=== PATIENT | female | born 1980 | race African-American/Black ===

== ENCOUNTER → 2020-04-30 | Outpatient (CLI) | payer OTHER ==
[~2020-04-30] MED LIST: AUGMENTIN 875-1 EACH PO; BENADRYL25 MG; ERYTHROMYCIN E3.5 G3 OPHTHALMIC; HYDROCODONE-AP1 EAC6 PO; NORCO 5-325 TA1 EACH PO; PERCOCET 5-3251 EACH PO; PREDNISONE 20 M20 MG PO
== END ==
LOC: ULTRA 14:43
PROVIDERS: ATTEND Nurse Practitioner
DX: I82.402 Acute embolism and thrombosis of unspecified deep veins of left lower extremity (principal)

== ENCOUNTER 2021-08-10 14:03 | Inpatient (IN) | payer OTHER ==
[~2021-08-10] VITALS: Ht 167.6 cm; Wt 120.2 kg
--- NOTE | ~2021-08-10 | EMS ---
[place] [id number] EMS Patient Care Report Name: DAYNA COHEN Room #: 363-P ADM IN M.R.#: [id number] Admission: 08/10/21 Attend Phys: Manuel Hood MD Discharge: Date of : 80 Report #: [id number] THIS REPORT FOR: //name// Report Transmitted: 08/22/2021 13:58 EMS Care Summary [place], [place]/[facility] Incident [id number] @ 08/10/2021 13:43 Incident Location [address] [place] [address] Patient DAYNA COHEN Female, 41 Years 1980 Patient Address Patient History None Reported, Patient Allergies No known allergies, Patient Medications None Reported, Chief Complaint COUGH, CONGESTION, FEVER, CHILLS, AND WEAKNESS Disposition Transported No Lights/[place] Dispatch Reason Breathing Problem Transported To [facility] Narrative UPON ARRIVAL WE FOUND OUR 41 YEAR OLD FEMALE PATIENT LAYING IN AN EXAM ROOM AT [facility] COMPLAINING OF A COUGH, CONGESTION, FEVER, CHILLS, WEAKNESS, AND MALAISE X 5 DAYS. [facility] STAFF STATES THE PATIENT HAD A ROOM AIR SAO2 READING OF 72% AND HER COVID-19 TEST IS PENDING. THE PATIENT STATES SHE IS NOT VACCINATED AGAINST COVID-19 AND SHE HAS HAD EXPOSURE TO HER ILL FATHER. THE PATIENT REQUESTS TRANSPORT TO [facility] [place] [place] [address] EMS Patient Care Report Name: DAYNA COHEN Room #: 363-P [facility] IN .R.#: [id number] Admission: 08/10/21 Attend Phys: Manuel Hood MD Discharge: Date of : 80 Report #: [id number] Initial Vitals @13:52P: 108,R: 20,BP: 134/81,Pain: 0/10,GCS: 15,Temp: 102.1F,SpO2: 100,Revised Trauma: 12,SD Suspected: false @13:59P: 112,R: 20,BP: 138/72,Pain: 0/10,GCS: 15,SpO2: 98,Revised Trauma: 12,SD Suspected: false Assessments @13:49MENTAL:Time Oriented,Event Oriented,Place Oriented,Person Oriented,SKIN:Hot,HEENT:Eyes: Right Pupil: 4-mm,Eyes: Left Pupil: 4-mm,Head/Face: No Abnormalities,Neck/Airway: No Abnormalities,LUNG SOUNDS:General: No Abnormalities,ABDOMEN:General: No Abnormalities,PELVIS//GI:No Abnormalities,EXTREMITIES:Left Arm: No Abnormalities,Right Arm: No Abnormalities,Left Leg: No Abnormalities,Right Leg: No Abnormalities,PULSE:Radial: 2+ Normal,NEURO:No Abnormalities, Impression Cough Procedures @13:49 ALS Assessment Response: UnchangedSucceeded @13:52 3-Lead ECG Response: UnchangedSucceeded @13:50 Oxygen FlowRate: 6 Device: Nasal Cannula (NC) Response: UnchangedSucceeded Timeline 13:42,Call Received 13:42,Dispatch Notified 13:43,Dispatched 13:45,En Route 13:48,On Scene 13:49,At Patient 13:49,ALS Assessment,Response: UnchangedSucceeded, 13:50,Oxygen FlowRate: 6 Device: Nasal Cannula (NC) Response: UnchangedSucceeded, 13:52,3-Lead ECG,Response: UnchangedSucceeded, 13:52,BP: 134/81 M,PULSE: 108,RR: 20 R,SPO2: 100 Ox,ETCO2: ,BG: ,PAIN: 0,GCS: 15, 13:52,Depart Scene 13:59,At Destination 13:59,BP: 138/72 M,PULSE: 112,RR: 20 R,SPO2: 98 Ox,ETCO2: ,BG: ,PAIN: 0,GCS: 15, 14:18,Call Closed Disclaimer [address] [address] EMS Patient Care Report Name: DAYNA COHEN Room #: 363-P ADM IN M.Beto.#: [id number] Admission: 08/10/21 Attend Phys: Manuel Hood MD Discharge: Date of : 80 Report #: [id number] v1.1 Copyright 2020 [employer] This EMS Care Summary contains data elements from the applicable legal record (which may be displayed differently). It is designed to provide pertinent information for the following purposes: continuity of care, clinical quality, and state data reporting. The complete legal record is available to ED staff and administrators of the receiving hospital in [facility]'s Patient Tracker. All data is provided "as is."
[2021-08-10 14:04] VITALS: BP 130/80
[2021-08-10 14:45] LABS: ABSOLUTE NEUTROPHILS 5.2 thou/uL (1.4-8.2); BASOPHILS 0.2 % (0.0-2.0); HEMATOCRIT 32.9 % (37.0-47.0); HEMOGLOBIN 10.8 gm/dL (12.0-15.0); LYMPHOCYTES 11.7 % (24.0-44.0); MCH 27.4 pg (26.0-34.0); MCHC 32.9 g/dL (28.0-37.0); MCV 83.1 fL (80.0-100.0); MONOCYTES 5.2 % (1.0-8.0); PLATELET COUNT 227 thou/uL (150-400); POLYS 82.9 % (36.0-66.0); RBC 3.96 mil/uL (4.20-5.00); WBC 6.3 thou/uL (4.0-11.0)
[2021-08-10 15:12] LABS: HCO3 24.3 mmol/L (22.0-26.0); PCO2 30.4 mmHg (35.0-45.0); pH 7.521 (7.360-7.450); sO2 95.1 % (92.0-98.0)
[2021-08-10 15:40] LABS: APTT 26.3 Seconds (24.5-32.8); D-DIMER 9.89 ug/mLFEU (0.19-0.50); INR 1.01
[2021-08-10 15:47] LABS: ALBUMIN 2.4 g/dL (3.4-5.0); CALCIUM 7.4 mg/dL (8.5-10.1); CREATININE 0.8 mg/dL (0.6-1.0); TOTAL BILIRUBIN 0.4 mg/dL (0.2-1.0); TOTAL PROTEIN 6.9 g/dL (6.4-8.2)
[2021-08-10 15:49] LABS: POTASSIUM 2.9 mmol/L (3.5-5.1)
[2021-08-10 17:47] LABS: ABSOLUTE RETIC COUNT 0.0358 10^6/uL; HEMATOCRIT 32.8 % (37.0-47.0); HEMOGLOBIN 10.8 gm/dL (12.0-15.0); MCH 27.4 pg (26.0-34.0); MCV 82.8 fL (80.0-100.0); OBSERVED RETIC COUNT 0.9 % (0.6-2.6); RBC 3.96 mil/uL (4.20-5.00); RDW 15.7 % (10.5-14.5); WBC 6.2 thou/uL (4.0-11.0)
[2021-08-10 18:12] LABS: FOLIC ACID 14.7 ng/mL (8.6-58.9)
[2021-08-10 18:31] LABS: % SATURATION 6 % (20-39); IRON 21 ug/dL (50-170); TIBC 368 ug/dL (250-450)
[2021-08-10 21:54] LABS: URINE BILIRUBIN NEGATIVE (Negative); URINE BLOOD 3+ (Negative); URINE CLARITY CLEAR; URINE COLOR YELLOW; URINE GLUCOSE-RANDOM* NEGATIVE (Negative); URINE KETONES 1+ (Negative); URINE LEUKOCYTES-REFLEX NEGATIVE (Negative); URINE NITRITE-REFLEX NEGATIVE (Negative); URINE PROTEIN (DIPSTICK) NEGATIVE (Negative); URINE SPECIFIC GRAVITY <= 1.005 (1.005-1.035); URINE UROBILINOGEN 0.2 E.U./dl (0.2-1.0)
[2021-08-10 22:02] LABS: BACTERIA-REFLEX None Seen /HPF (None Seen); CASTS None Seen /LPF (None Seen); CRYSTALS None Seen /LPF (None Seen); SQUAMOUS 0-3 Few /LPF (0-3); URINE RBC >20 Many /HPF (NONE SEEN)
[2021-08-10 22:03] LABS: URINE WBC-REFLEX None Seen /HPF (0-5)
[2021-08-11 05:27] LABS: HEMOGLOBIN 10.1 gm/dL (12.0-15.0); MCH 27.5 pg (26.0-34.0); MCHC 32.6 g/dL (28.0-37.0); MCV 84.3 fL (80.0-100.0); RBC 3.68 mil/uL (4.20-5.00); WBC 4.1 thou/uL (4.0-11.0)
[2021-08-11 05:36] LABS: ALBUMIN 2.4 g/dL (3.4-5.0); ANION GAP 13 mmol/L (7-16); BUN 7 mg/dL (7-18); CALCIUM 7.5 mg/dL (8.5-10.1); CHLORIDE 106 mmol/L (98-107); CO2 24 mmol/L (21-32); CREATININE 0.7 mg/dL (0.6-1.0); DIRECT BILIRUBIN < 0.1 mg/dL (<0.1-0.2); GLUCOSE 128 mg/dL (74-106); MAGNESIUM 2.5 mg/dL (1.8-2.4); PHOSPHORUS 2.7 mg/dL (2.6-4.7); POTASSIUM 3.4 mmol/L (3.5-5.1); SGOT 85 U/L (15-37); SGPT 42 U/L (14-59); SODIUM 143 mmol/L (136-145); TOTAL BILIRUBIN 0.3 mg/dL (0.2-1.0); TOTAL PROTEIN 6.9 g/dL (6.4-8.2)
--- NOTE | 2021-08-11 07:19 | EKG ---
[place] [address] [facility] [place] [address] ELECTROCARDIOGRAM REPORT Name: DAYNA COHEN Room #: 170-12 ADM IN M.R.#: [id number] Admission: 08/10/21 Attend Phys: Manuel Hood MD Discharge: Date of : 80 Report #: [id number] [facility] ED Test Date: 2021-08-10 Test Time: 14:18:54 Pat Name: DAYNA COHEN Department: Room: 170 Gender: F Physiotherapist'S Assistant: ILDA : 1980 Requested By: Romulo Lund Order Number: [id number] MD: Franklyn Tipton Measurements Intervals [place] Rate: 101 P: 51 KS: 133 QRS: 23 QRSD: 91 T: -11 QT: 367 QTc: 476 Interpretive Statements Sinus tachycardia Probable left atrial enlargement Borderline T abnormalities, diffuse leads Borderline prolonged QT interval No previous ECG available for comparison Electronically Signed On 08-11-2021 7:19:32 WELDING EQUIPMENT REPAIRER by Franklyn Tipton [email or web address] <ELECTRONICALLY SIGNED> By: Franklyn Tipton MD, [facility] 08/11/21 0719 1418 1418 Franklyn Tipton MD, FACC /EPI
--- NOTE | 2021-08-11 20:39 | NUR ---
RT PLACED ON OPTIFLOW THEN D/T MACHINE ERROR AND NO CHANGE TO OXYGEN SATS STARTED ON BIPAP. PULSE OX NOW 100% ON BIPAP.
[2021-08-11 21:40] VITALS: BP 142/91
[2021-08-12] VITALS (18 sets, daily range): BP systolic 124–156; BP diastolic 58–97
[2021-08-12 04:16] LABS: ALBUMIN 2.4 g/dL (3.4-5.0); CALCIUM 7.6 mg/dL (8.5-10.1); CREATININE 0.8 mg/dL (0.6-1.0); DIRECT BILIRUBIN 0.1 mg/dL (<0.1-0.2); TOTAL BILIRUBIN 0.4 mg/dL (0.2-1.0); TOTAL PROTEIN 6.8 g/dL (6.4-8.2)
--- NOTE | 2021-08-12 04:34 | NUR ---
ADMISSION: PT ARRIVED FROM ER AT 2140 AND IS ALERT & ORIENTED X 4. PT IS ON 100% BIPAP AND O2 SATS 99-100%. VSS BUT PT WAS FEBRILE UPON ARRIVAL TO UNIT. ADMINISTERED TYLENOL PRN AND FEVER WAS REDUCED. PT HAS SOB WITH EXERTION AND IS UP WITH X1 ASSIST. PT IS SR/ST ON TELE MONITOR. CARE PLAN IN PLACE AND INTERVENTIONS ARE SET. WILL CONTINUE TO MONITOR.
[2021-08-12 04:43] LABS: HEMATOCRIT 32.8 % (37.0-47.0); HEMOGLOBIN 10.3 gm/dL (12.0-15.0); MCH 27.1 pg (26.0-34.0); MCHC 31.4 g/dL (28.0-37.0); MCV 86.5 fL (80.0-100.0); RBC 3.8 mil/uL (4.20-5.00); WBC 6.4 thou/uL (4.0-11.0)
--- NOTE | 2021-08-12 08:34 | HC ---
[facility] [place] [address] CONSULTATION Name: DAYNA COHEN Room #: 349-I ADM IN M.R.#: [id number] Admission: 08/10/21 Attend Phys: Manuel Hood MD Discharge: Date of : 80 Report #: [id number] THIS REPORT FOR: cc: Lizz Reina MD, Nora P. MD Barry,Leo Candelario MD ~ DATE OF SERVICE: 08/11/2021 INFECTIOUS DISEASE CONSULTATION ATTENDING PHYSICIAN: Dr. Hood. REASON FOR EVALUATION: COVID-19 infection, complicated by pneumonitis and respiratory failure. HISTORY OF PRESENT ILLNESS: Chart reviewed. The patient examined. This is a 41-year-old woman without significant medical history who noted onset of illness, progressive dyspnea over the course of last several days, was evaluated, and was confirmed to have a positive COVID test. Also found to have radiographic evidence of bilateral infiltrates and hypoxemia, pO2 of 66 on 6 liters. CTA of the chest showed no evidence of pulmonary embolus. She was initiated on broad-spectrum combination therapy with azithromycin, ceftriaxone, remdesivir, corticosteroids, vitamins. She notes she is somewhat improved subjectively, although has required additional supplemental oxygen, now at 12 liters per nasal cannula. ALLERGIES: None known. CURRENT MEDICATIONS: Include dexamethasone, azithromycin, ceftriaxone, cholecalciferol, zinc, vitamin, famotidine, ascorbic acid, albuterol, p.r.n. analgesics, antiemetics, remdesivir. PAST MEDICAL HISTORY: Otherwise, unremarkable. She is obese. SOCIAL HISTORY: Nonsmoker, no ethanol, no illicit drug use. FAMILY HISTORY: Noncontributory. REVIEW OF SYSTEMS: Otherwise, has had some fevers, chills, diminished appetite, poor p.o. intake, although was pushing fluids. PHYSICAL EXAMINATION: GENERAL: She is alert, cooperative, moderate distress secondary to respiratory difficulties. She appears to be reasonably well nourished. VITAL SIGNS: Temperature 98.2. She had a T-max overnight of 101.3, pulse 97, respirations 16, blood pressure 133/77, saturations 90-94% on 12 liters nasal [facility] [address] [place] [address] CONSULTATION Name: DAYNA COHEN Room #: 349-I ADM IN M.R.#: [id number] Admission: 08/10/21 Attend Phys: Manuel Hood MD Discharge: Date of : 80 Report #: [id number] cannula. HEENT: Normocephalic. Extraocular muscles intact. NECK: Supple. LUNGS: Bilateral few scattered coarse breath sounds overall diminished. HEART: Distant, tachycardic,_regular, I do not appreciate a murmur. ABDOMEN: Large pannus, somewhat firm, nontender. EXTREMITIES: No cyanosis. GENITOURINARY AND RECTAL: Deferred. LABORATORY DATA: Blood cultures sterile thus far. Sodium 143, potassium 3.4, chloride 106, bicarbonate is 24, anion gap of 13, BUN and creatinine 7 and 0.7, glucose of 128, AST of 85, ALT of 42, albumin of 24, total protein 6.9. Estimated GFR of 112. CBC: White count of 4.1, H and H of 10.1 and 31.0, platelets of 236. Coronavirus testing, she was negative here. TSH of 0.606. Ferritin elevated at 372. Procalcitonin less than 0.05. Lactic acid of 1.7. Chest x-ray notes multifocal pneumonia. ASSESSMENT AND PLAN: COVID-19 infection, complicated by pneumonitis and respiratory failure with significant likelihood of further deterioration. Agree with broad-spectrum antimicrobial therapy including antibacterials. We will check additional testing including sputum culture urinary antigen. Continue supportive care with oxygen therapy, anti-inflammatories. Discussed with Dr. Hood. <ELECTRONICALLY SIGNED> By: Leo Dobson MD 08/12/21 0834 1105 1138 Leo Dobson MD /nt
--- NOTE | 2021-08-12 16:28 | NUR ---
INITIAL ASSESSMENT: Received consult. SW reviewed chart and spoke with nursing and attending physician. Pt was admitted from home due to COVID pneumonia. Pt placed in Enhanced Isolation. Pt has not received a COVID Vaccination. Pt has been febrile and is requiring bipap/optiflow support. Pt is on IV meds and Remdesivir. SW placed calls to pt's room. No answer. Per chart, pt is alert/orientated x 4. Pt lives at home. Pt's PCP is listed as Dr. Lizz Reina. Pt may need therapy evals to assist with recommendations for discharge. SW is following to assist as needed with discharge planning.
--- NOTE | 2021-08-12 18:41 | NUR ---
ASSUMED PATIENT CARE AT 0700. A/O X4. ON BIPAP. TITRATED FIO2 TO 60% WITH SAT 95%. PATIENT BRETHING 42 to 45/M. DR CABRAL ORDERED TRANSFER TO ICU ROOM 238. MASSAGE LEFT TO FATHER. WILL KEEP MONITOR.
--- NOTE | 2021-08-12 20:28 | NUR ---
PATIENT ARRIVED TO ICU AT 1935. ATTACHED TO ICU MONITORS. PATIENT ON BIPAP 60% UPON ARRIVAL, SATS IN UPPER 80S. PATIENT SR ON MONITOR, NO COMPLAINTS OF PAIN BUT DOES COMPLAIN OF SOA. PIV PATENT, SL AT THIS TIME. PATIENT STABLE BUT TACHYPNIC IN 40S-50S. RT INCREASED FIO2 ON BIPAP TO 70% AND PATIENT IS NOW SATTING IN MID TO UPPER 90S BUT STILL TACHYPNIC. PATIENT'S FATHER UPDATED ON CONDITION. WILL CONTINUE TO MONITOR.
[2021-08-13] VITALS (40 sets, daily range): BP systolic 124–171; BP diastolic 81–105
[2021-08-13 05:48] LABS: HEMATOCRIT 33.2 % (37.0-47.0); HEMOGLOBIN 10.5 gm/dL (12.0-15.0); MCH 27.2 pg (26.0-34.0); MCHC 31.6 g/dL (28.0-37.0); MCV 85.9 fL (80.0-100.0); RBC 3.86 mil/uL (4.20-5.00); RDW 16.4 % (10.5-14.5); WBC 5.8 thou/uL (4.0-11.0)
[2021-08-13 06:21] LABS: ALBUMIN 2.1 g/dL (3.4-5.0); CALCIUM 7.9 mg/dL (8.5-10.1); CREATININE 0.7 mg/dL (0.6-1.0); DIRECT BILIRUBIN 0.1 mg/dL (<0.1-0.2); PHOSPHORUS 2.7 mg/dL (2.5-4.9); TOTAL BILIRUBIN 0.3 mg/dL (0.2-1.0); TOTAL PROTEIN 6.7 g/dL (6.4-8.2)
--- NOTE | 2021-08-13 07:59 | NUR ---
Pt TRANSFERRED TO ICU. WILL PLACE ON HOLD AND AWAIT NEW ORDERS TO RESUME
--- NOTE | 2021-08-13 15:45 | NUR ---
precedex on briefly. pt dozing, noting respiration is shallow with rate increased into low 40's. trialed pt without precedex with resp rate improved into upper 20's to low 30's. pt able to take deep breath, purposefully slow her breathing and make it more effective with rate in the teens. occasional purposeful cough with scant clear secretions.
[2021-08-14] VITALS (26 sets, daily range): BP systolic 143–209; BP diastolic 74–99
[2021-08-14 04:14] LABS: ALBUMIN 2.1 g/dL (3.4-5.0); ANION GAP 13 mmol/L (7-16); BUN 12 mg/dL (7-18); CALCIUM 7.9 mg/dL (8.5-10.1); CHLORIDE 107 mmol/L (98-107); CO2 24 mmol/L (21-32); CREATININE 0.7 mg/dL (0.6-1.0); DIRECT BILIRUBIN < 0.1 mg/dL (<0.1-0.2); GLUCOSE 144 mg/dL (74-106); PHOSPHORUS 4.3 mg/dL (2.5-4.9); POTASSIUM 3.4 mmol/L (3.5-5.1); SGOT 53 U/L (15-37); SGPT 27 U/L (30-65); SODIUM 144 mmol/L (136-145); TOTAL BILIRUBIN 0.3 mg/dL (0.2-1.0); TOTAL PROTEIN 6.6 g/dL (6.4-8.2)
--- NOTE | 2021-08-14 11:53 | NUR ---
TPN recommendations: start 40ml/hr standard tpn and progress to goal of 80ml/hr.
--- NOTE | 2021-08-14 16:43 | NUR ---
PT'S CARE DISCUSSED WITH CARE TEAM DURING ICU ROUNDS THIS DAY. PT ON BIPAP AT 50%. CARE TEAM INDICATED THAT PT WAS TO HAVE A CENTRAL LINE PLACED AND POSSIBLE HAVE TPN INITIATED. CM FOLLOWING.
--- NOTE | 2021-08-14 17:34 | NUR ---
VASCULAR ACCESS NOTE ORDER CONFIRMED. CONSENT OBTAINED FROM PATIENT FOR LINE PLACEMENT. 5FR TL PICC PLACED TO R BRACHIAL VEIN WITH US GUIDANCE. PATIENT TOLERATED PROCEDURE WELL. GUIDEWIRE REMOVED INTACT. ALL LUMENS FLUSH AND DRAW EASILY. 3CG VERIFICATION FOR PLACEMENT. PICC OK TO USE.
[2021-08-15] VITALS (22 sets, daily range): BP systolic 121–173; BP diastolic 64–98
[2021-08-15 07:13] LABS: CALCIUM 8.5 mg/dL (8.5-10.1); CREATININE 0.7 mg/dL (0.6-1.0); POTASSIUM 3.6 mmol/L (3.5-5.1)
--- NOTE | 2021-08-15 16:18 | NUR ---
CM REVIEWED CHART AND SPOKE WITH NURSE. PT'S CARE DISCUSSED IN ICU ROUNDS THIS DAY. STAFF REPORTS THAT PT IS A&O X4. PT IS ON BIPAP AT 60%. CARE TEAM HAD DISCUSSED PT'S ORAL INTAKE LOOKING AT TPN VS. DOBHOFF. NURSE INDICATED THAT PT'S FATHER WHO IS HER MAIN CONTACT IS IN ICU WITH JEFFREY AT ANOTHER HOSPITAL AND THAT A FRIEND HAD CALLED THIS AM. CM FOLLOWING REGARDING DC PLANNING. NO WEEKEND DC ANTICPATED.
[2021-08-16] VITALS (24 sets, daily range): BP systolic 117–174; BP diastolic 70–111
[2021-08-16 06:22] LABS: CALCIUM 8.1 mg/dL (8.5-10.1); CREATININE 0.7 mg/dL (0.6-1.0); POTASSIUM 3.6 mmol/L (3.5-5.1)
[2021-08-16 06:49] LABS: ALBUMIN 2.3 g/dL (3.4-5.0); DIRECT BILIRUBIN < 0.1 mg/dL (<0.1-0.2); MAGNESIUM 2.1 mg/dL (1.8-2.4); SGOT 71 U/L (15-37); SGPT 56 U/L (14-59); TOTAL BILIRUBIN 0.3 mg/dL (0.2-1.0); TOTAL PROTEIN 6.2 g/dL (6.4-8.2)
[2021-08-16 08:03] LABS: HCO3 24.1 mmol/L (22.0-26.0); PCO2 33.5 mmHg (35.0-45.0); pH 7.474 (7.360-7.450); sO2 96.2 % (92.0-98.0)
[2021-08-16 15:22] LABS: TRIGLYCERIDE 175 mg/dL (<150)
[2021-08-17] VITALS (32 sets, daily range): BP systolic 73–172; BP diastolic 38–94
[2021-08-17 05:41] LABS: ABSOLUTE NEUTROPHILS 4.1 thou/uL (1.4-8.2); BASOPHILS 0.5 % (0.0-2.0); EOSINOPHILS 1.9 % (0.0-3.0); HEMATOCRIT 36.6 % (37.0-47.0); HEMOGLOBIN 11.7 gm/dL (12.0-15.0); MCH 27.7 pg (26.0-34.0); MCHC 31.8 g/dL (28.0-37.0); MCV 86.8 fL (80.0-100.0); MONOCYTES 4.7 % (1.0-8.0); PLATELET COUNT 165 thou/uL (150-400); POLYS 74.9 % (36.0-66.0); RBC 4.22 mil/uL (4.20-5.00); RDW 16.2 % (10.5-14.5); WBC 5.4 thou/uL (4.0-11.0)
[2021-08-17 05:47] LABS: ALBUMIN 2.2 g/dL (3.4-5.0); CALCIUM 8.2 mg/dL (8.5-10.1); CREATININE 0.7 mg/dL (0.6-1.0); MAGNESIUM 2.1 mg/dL (1.8-2.4); PHOSPHORUS 3.1 mg/dL (2.5-4.9); POTASSIUM 4.1 mmol/L (3.5-5.1); TOTAL BILIRUBIN 0.2 mg/dL (0.2-1.0); TOTAL PROTEIN 6.3 g/dL (6.4-8.2)
--- NOTE | 2021-08-17 13:46 | NUR ---
PT HAS BEEN ON AND OFF SLEEPING THROUGHOUT THE DAY, PT WAS TRANSITIONED TO OPTIFLOW CANULA AT THE BEGINNING OF THE SHIFT AND HAS BEEN TOLERATING WELL FOR THIS SHIFT, PT WAS SEEN LESS TACHYCARDIC AND MORE PLEASANT WITH THE UPDATED THERAPY. AT TIMES PT WOULD DESAT FROM 96 TO 90% BUT WOULD REBOUND WITHOUT ASSISTANCE. PT WATCHING TV. PER , PT TO FINISH CURRENT BAG OF TPN THEN TRANSITION TO REGULAR PO DIET ONCE TPN IS COMPLETED. RN TO COMPLY AND PROVIDE NECESSARY INTEVENTIONS. WILL UPDATE IF NEEDED
--- NOTE | 2021-08-17 21:40 | NUR ---
PT BLOOD PRESSURE ALARM LOW AT 2105 85/38. PRESSURE WAS RECYCLED MULTIPLE TIMES WITH NO IMPROVMENT. PRESSURE 80'S SYSTOLIC. RN CHECKED ON PATIENT AND SHE REPORTED HER CHEST "FEELING FUNNY". STAT EKG WAS ORDERED AND REVEALED NORMAL SINUS RHYTHM, WITH BORDERLINE PROLONGED QT. BLOOD SUGAR WAS TAKEN AND IT WAS 252. PT ALERT AND ORIENTED TALKING WITH RN DURING THIS TIME. HEART AND O2 LEVELS REMAIN STABLE. INGA ROSARIO CALLED AT 2136 AND REPORTED BLOOD PRESSURE AND EKG REPORT AND BLOOD SUGAR. BROACHER REPORTED SHE WOULD TAKE A LOOK AT THE PATIENTS CHART.
--- NOTE | 2021-08-17 22:16 | NUR ---
[employer]PER[employer] ORDERED ALBUMIN AND MED STARTED AT 2158. BLOOD PRESSURE UP TO 94/54 AT THIS TIME. PT STATES CHEST IS FEELING BETTER.
[2021-08-18] VITALS (23 sets, daily range): BP systolic 94–128; BP diastolic 44–71
[2021-08-18 05:36] LABS: ABSOLUTE NEUTROPHILS 7.2 thou/uL (1.4-8.2); BASOPHILS 0.4 % (0.0-2.0); EOSINOPHILS 0.7 % (0.0-3.0); HEMATOCRIT 35.2 % (37.0-47.0); LYMPHOCYTES 15.7 % (24.0-44.0); MCH 27.1 pg (26.0-34.0); MCHC 31.3 g/dL (28.0-37.0); MCV 86.8 fL (80.0-100.0); MONOCYTES 8.9 % (1.0-8.0); PLATELET COUNT 163 thou/uL (150-400); POLYS 74.3 % (36.0-66.0); RBC 4.05 mil/uL (4.20-5.00); RDW 16.4 % (10.5-14.5); WBC 9.7 thou/uL (4.0-11.0)
[2021-08-18 05:55] LABS: BE(vivo) 2.4 mmol/L (-2 to +3); HCO3 25.9 mmol/L (22.0-26.0); PCO2 36.4 mmHg (35.0-45.0); PO2 83.4 mmHg (80.0-100.0); sO2 96.8 % (92.0-98.0)
[2021-08-18 05:58] LABS: ALBUMIN 2.8 g/dL (3.4-5.0); CALCIUM 8.7 mg/dL (8.5-10.1); CREATININE 0.7 mg/dL (0.6-1.0); POTASSIUM 3.8 mmol/L (3.5-5.1); TOTAL BILIRUBIN 0.4 mg/dL (0.2-1.0); TOTAL PROTEIN 6.2 g/dL (6.4-8.2)
--- NOTE | 2021-08-18 09:00 | EKG ---
[place] [address] [facility] [place] [address] ELECTROCARDIOGRAM REPORT Name: DAYNA COHEN Room #: 238- ADM IN M.R.#: [id number] Admission: 08/10/21 Attend Phys: Manuel Hood MD Discharge: Date of : 80 Report #: [id number] [facility] Test Date: 2021-08-17 Test Time: 21:28:50 Pat Name: DAYNA COHEN Department: Room: 238 Gender: F Diesel Electrician: MARICARMEN : 1980 Requested By: Erich Brasher Order Number: [id number] MD: Petey Koch Measurements Intervals [place] Rate: 95 P: 64 [place]: 113 QRS: 36 QRSD: 93 T: 4 QT: 397 QTc: 499 Interpretive Statements Sinus rhythm Borderline short OH interval Left ventricular hypertrophy Borderline prolonged QT interval Compared to ECG 08/10/2021 14:18:5 Sinus tachycardia no longer present Electronically Signed On 08-18-2021 9:00:31 ACCOUNT RECEIVABLE ASSOCIATE by Petey Koch [email or web address] <ELECTRONICALLY SIGNED> By: Petey Koch MD, [facility] 08/18/21899 27 27 Petey Koch MD, FAC /EPI
--- NOTE | 2021-08-18 16:28 | NUR ---
pt's care discussed during ICU rounds this day. Pt is on OptiFlow 60% at 40 L. Pt getting IV Ceftriaxone and dexamethasone. Cm following.
--- NOTE | 2021-08-18 18:27 | NUR ---
PT IS PRORESSING TOWARDS DISCHARGE AT THIS TIME AEB TOLERATING DOWNSTEP FROM BIPAP TO OPTIFLOW MACHINE AND TOLERATING DECREASE IN FIO2 TODAY, PT OVERALL APPEARANCE LOOKS BETTER AND IS BETTER ALERT/ORIENTED TODAY. CONCERN IS PT DESATS QUICKLY WITH EXERTION AND WAS FOUND TO BECOME HYPOXIC AT 86% WHILE SCOOTING SELF BACK IN BED, WILL POSSIBLY NEED PT/OT WORKUP PRIOR TO DISCHARGE. NO COMPLAINTS FROM THE PATIENT AT THIS TIME. BEGINNING TO PASS GAS. TOLERATING DIET
[2021-08-19] VITALS (13 sets, daily range): BP systolic 103–123; BP diastolic 56–71
--- NOTE | 2021-08-19 10:35 | NUR ---
41F VERBAL REPORT RECEIVED FROM REMINGTON SORENSON AT BEDSIDE. PT OF OPTIFLOE 45% 4O LT. PT ON MONITOR ACCOMPANIED BY RN.
--- NOTE | 2021-08-19 12:25 | NUR ---
PT NOTIFIED OF IMPENDING TRANSFER TO 3W, BELONGINGS GATHERED. WITH RT ASSISTANCE, SWITCH FROM OPTIFLOW TO NRB FOR TRAVEL. BEDSIDE REPORT GIVEN TO 3W RN BY YAS MACEDO. TRANSPORT MONITOR USED, TRANSITIONED TO TELEMETRY PACK ON 3W. TRANSFER COMPLETED AT 11:30AM.
--- NOTE | 2021-08-19 16:11 | NUR ---
SADIE reviewed chart and spoke with nursing and attending physician. Pt remains in Enhanced Isolation due to COVID. Pt is afebrile and on optiflow. Pt is on IV steroids and Remdesivir. Pt was transferred to 3 from ICU earlier today. PT/OT evals ordered. SADIE discussed case with 5N homemaking rehabilitation consultant. Pt may benefit from a 5N consult pending progress with therapy and medical stability. SADIE is following to assist as needed with discharge planning.
--- NOTE | 2021-08-19 16:22 | NUR ---
PT AOX3 PT CENTRAL LINE HAS ONLY ONE PORT FUNCTIONING. IV TEAM NOTIFIED. mD MARTIN STATED IT IS OK TO USE TO CATHFLOW FOR THE CENTRAL LINE PATENCY. PT GIVEN MULTIPLE LAXATIVE AND SUPPOSITORY FOR PATIENT TO MOVE BOWELS BUT NO BOWEL MOVEMENT OF YET.
--- NOTE | 2021-08-19 19:55 | NUR ---
PT BREATHING REGULARLY ON 3LNC. PT REFUSES THE HARDING. HARDING D/C PER PATIENT REQUEST. REMDESIVIR STARTED AND VERBAL REPORT GIVEN TO INCOMING RN .
[2021-08-20 04:16] VITALS: BP 10/62; BP 110/62
--- NOTE | 2021-08-20 05:15 | NUR ---
Slept fair during the night. Cont. on enhanced precaution,afebrile. Up with SBA to commode.Voiding well after lynne dc'd yesterday. Maintaining O2 sat in the mid 90's on Optiflow 30L/40%.Shortness of breath with exertion and desats easily.
[2021-08-20 07:40] VITALS: BP 143/116
[2021-08-20 11:28] VITALS: BP 140/70
--- NOTE | 2021-08-20 15:09 | NUR ---
SW reviewed chart and spoke with nursing and attending physician. Pt remains in Enhanced Isolation due to COVID. Pt is afebrile and on optiflow. Pt is on IV meds and Remdesivir. Case discussed with 5N manager rehab, who states they will follow and submit for insurance auth if pt is appropriate for admission. SW placed call to pt's room. No answer. SADIE is following to assist as needed with discharge planning.
[2021-08-20 16:27] VITALS: BP 110/68
[2021-08-20 19:20] VITALS: BP 114/74
[2021-08-21 04:08] VITALS: BP 100/61
[2021-08-21 07:04] LABS: HEMOGLOBIN 10.7 gm/dL (12.0-15.0); MCH 27.6 pg (26.0-34.0); MCHC 31.6 g/dL (28.0-37.0); MCV 87.2 fL (80.0-100.0); RBC 3.89 mil/uL (4.20-5.00); RDW 17.5 % (10.5-14.5); WBC 7.9 thou/uL (4.0-11.0)
[2021-08-21 07:10] LABS: CALCIUM 8.7 mg/dL (8.5-10.1); CREATININE 0.7 mg/dL (0.6-1.0); POTASSIUM 4.1 mmol/L (3.5-5.1)
--- NOTE | 2021-08-21 07:18 | NUR ---
PROGRESS PT A/O X4. UP WITH SBA. VOIDING QS. LUNGS CLEAR AND DIMINISHED, DRY FREQUENT COUGH NOTED. VSS, TELE INTACT READING SR. DENIES PAIN CONTINUE POC.
[2021-08-21 09:09] VITALS: BP 111/70
[2021-08-21 11:18] VITALS: BP 119/67
--- NOTE | 2021-08-21 15:25 | NUR ---
SW reviewed chart and spoke with nursing and attending physician. Pt remains in Enhanced Isolation due to COVID. Pt is afebrile on 6L of O2. Pt is on IV steroids and Remdesivir. 5N consulted. SW spoke with pt via phone. SW discussed discharge plans. Pt states her goal is to discharge directly home from the hospital when medically stable. SW discussed possible need for HH and/or Home O2. Pt is hoping to not need either. Pt's PCP is Dr. Lizz Reina. SW states her employer need documentation regarding pt's hospitalization. SW provided pt with SW contact info and email addresss if needed. SADIE is following to assist as needed [facility] discharge planning.
[2021-08-21 15:58] VITALS: BP 102/70
--- NOTE | 2021-08-21 17:51 | NUR ---
PT A+0 X 4. PT ON 6L NC FROM OPTIFLOW YESTERDAY. NO COMPLAINTS OF PAIN. WILL CONTINUE TO MONITOR.
[2021-08-21 20:18] VITALS: BP 118/71
--- NOTE | 2021-08-22 00:37 | NUR ---
PROGRESS PT A/O X4. LUNGS CLEAR BUT DIMINISHED. FREQUENT DRY COUGH NOTED . ON 4 LITERS O2 VIA HIFLO CANULA. SATS IN MIDS 90'S DENIES SOB AT REST. ACCUCHECKS AND SSI CONTINUE. VOIDING QS HAD A FEW SOFT TO LOOSE STOOLS THIS EVENING. REPORTS GOOD DIETARY INTAKE. TELEMETRY INTACT READING SR WITH RATES IN THE 80'S. CONTINUE POC.
[2021-08-22 03:37] VITALS: BP 109/66
[2021-08-22 06:13] LABS: CALCIUM 8.9 mg/dL (8.5-10.1); CREATININE 0.7 mg/dL (0.6-1.0); POTASSIUM 3.8 mmol/L (3.5-5.1)
[2021-08-22 06:17] LABS: HEMATOCRIT 32.6 % (37.0-47.0); HEMOGLOBIN 10.4 gm/dL (12.0-15.0); MCH 28.1 pg (26.0-34.0); MCHC 31.9 g/dL (28.0-37.0); RBC 3.71 mil/uL (4.20-5.00); RDW 16.7 % (10.5-14.5); WBC 8.4 thou/uL (4.0-11.0)
[2021-08-22 11:10] VITALS: BP 111/66
--- NOTE | 2021-08-22 12:40 | NUR ---
SADIE reviewed chart and spoke with nursing and attending physician. Pt remains in Enhanced Isolation due to COVID. Pt is afebrile and on 2L of O2. Pt is progressing towards goals for discharge. Weekend discharge anticipated. Pt will need a rest/exercise oximetry ordered prior to discharge to determine home O2 needs. SADIE placed call to pt's room. No answer. SADIE placed call to pt's cell phone. Voice mailbox is not set up. SADIE spoke with pt's nurse to request assistance with speaking with pt. SADIE is following to assist as needed with discharge planning.
[2021-08-22 15:15] VITALS: BP 109/66
--- NOTE | 2021-08-22 18:35 | NUR ---
PT A+O X 4. PT NOW ON 3L NC. PT IN CHAIR MOST OF SHIFT. NO COMPLAINTS OF PAIN. BEDSIDE TABLE AND CALL LIGHT WITHIN REACH. WILL CONTINUE TO MONITOR.
[2021-08-22 20:25] VITALS: BP 127/85
[2021-08-23 05:40] VITALS: BP 111/71
--- NOTE | 2021-08-23 06:05 | NUR ---
ASSESSMENT: PT CONTINUED HAVING A DRY NON-PRODUCTIVE AND HACKY COUGH. INGA ROSARIO PLACED AN ORDER FOR PRN GUIAFENESIN PO. AFTER THE SECOND DOES, THE COUGHING IS NOT PERSISTANT. WILL CONTINUE TO MONITOR.
[2021-08-23 07:09] VITALS: BP 118/60
[2021-08-23 11:37] VITALS: BP 116/66
[2021-08-23 16:11] VITALS: BP 122/71
--- NOTE | 2021-08-23 16:55 | NUR ---
PT A+O X4. NO COMPLAINTS OF PAIN. PT STATED TO RN THIS SHIFT "WHEN DEXAMETHASONE IS INFUSING, I GET ITCHY ALL OVER". PT STATES SHE HAS FELT THIS EVERYDAY, FOR ONLY A FEW MINTUES AT A TIME, BUT SHE "DIDNT KNOW WHAT IT WAS". WILL CONTINUE TO MONITOR.
[2021-08-23 19:55] VITALS: BP 120/69
[2021-08-24 03:21] VITALS: BP 109/59
--- NOTE | 2021-08-24 03:56 | NUR ---
Pt. rested quietly at intrvals during the night when checked on during frequent rounds. She has a dry productive cough and prn cough med given (see emar) with some relief noted. No c/o increased shortness of air. O2 on at 1 liter per nasal canula during the night. When patient coughs she does desat in the upper 80's, but recovers easily. No c/o pain.
[2021-08-24 05:37] LABS: HEMATOCRIT 34.2 % (37.0-47.0); HEMOGLOBIN 10.9 gm/dL (12.0-15.0); MCH 28.1 pg (26.0-34.0); RBC 3.89 mil/uL (4.20-5.00); RDW 17.3 % (10.5-14.5); WBC 9.4 thou/uL (4.0-11.0)
[2021-08-24 05:58] LABS: CREATININE 0.8 mg/dL (0.6-1.0); POTASSIUM 4.2 mmol/L (3.5-5.1)
[2021-08-24 07:17] VITALS: BP 108/66
[2021-08-24 11:12] VITALS: BP 110/66
[2021-08-24 15:17] VITALS: BP 108/67
--- NOTE | 2021-08-24 16:42 | NUR ---
ASSUMED PATIENT CARE AT 0700. A/O X4. TITRATED TO RA. DESAT WHEN COUGH. PROGRESSING TOWARDS POC GOALS.
[2021-08-24 20:00] VITALS: BP 120/79
[2021-08-25 04:55] VITALS: BP 109/72
--- NOTE | 2021-08-25 06:12 | NUR ---
POSSIBLE DC TODAY. 02 SATURATION IN 90'S UNTIL COUGHING ATTACKS. VERY DRY COUGH. RX GIVEN X2. 1L 02. NO OTHER COMPLAINTS FROM PT OVERNIGHT. VSS AND NO FEVER.
[2021-08-25 07:28] VITALS: BP 119/68
--- NOTE | 2021-08-25 13:36 | NUR ---
DISCHARGE NOTE: SADIE reviewed chart and spoke with nursing and attending physician. Pt remains in Enhanced Isolation due to COVID. Pt is afebrile and on room air. Pt is medically stable for discharge home today. SW spoke with pt via phone to discuss discharge plan. Pt is aware and in agreement with plan. Pt states she did receive ppwk from her employer. Pt had difficulty emailing the ppwk to SW. SW received ppwk this morning and sent to the hospitalist office for completion. Pt needing to sign portion of document. Nursing assisted with having pt sign ppwk and faxed to hospitalist office. Pt's family will be able to provide transportation home when discharged. SW to provide ppwk to pt's nurse when available. SADIE is following to assist as needed with discharge planning.
[2021-08-25] MEDS ORDERED: GUAIFENESIN DM S5 ML PO (13:47)
[2021-08-25] MEDS ORDERED: HUMALOG100 UNIT/1 SUBQ (13:50)
[2021-08-25] MEDS ORDERED: PROAIR HFA8.5 GM INH (13:50)
[2021-08-25 15:12] VITALS: BP 119/68
--- NOTE | 2021-08-25 15:53 | NUR ---
PT DISCHARGED APPROX 1600. PT GIVEN DISCHARGE INFORMATION AND SIGNED VERBAL CONSENT. SCRIPTS TO BE SENT TO PREFERRED PHARMACY. WENT OVER NEW MEDICATIONS AND HOW TO TAKE MEDICATIONS. SPOKE ABOUT UPCOMING APPOINTMENTS. DC'D LINE. ALL BELONGINGS WITH PT. PT NOW WAITING FOR RIDE HOME. TO BE TRANSPORTED HOME WITH FATHER.
== END 2021-08-25 16:09 | disposition home or self-care (01) | DRG 871 ==
LOC: ER 14:03 → 3W 17:06 → EROBS 17:06 → 3W 08-11 21:34 → ICU 08-12 19:40 → 3W 08-19 12:00
PROVIDERS: Emergency Medicine; Hospitalist; Internal Medicine Pulmonary Disease; Pediatrics; Specialist; ADMIT Internal Medicine; ATTEND Internal Medicine
PROC: XW033E5 Introduction of Remdesivir Anti-infective into Peripheral Vein, Percutaneous Approach, New Technology Group 5 (ICD-10-PCS; principal; 2021-08-10)
PROC: 5A09557 Assistance with Respiratory Ventilation, Greater than 96 Consecutive Hours, Continuous Positive Airway Pressure (ICD-10-PCS; 2021-08-11)
PROC: 5A0935A Assistance with Respiratory Ventilation, Less than 24 Consecutive Hours, High Flow/Velocity Cannula (ICD-10-PCS; 2021-08-11)
PROC: 02HV33Z Insertion of Infusion Device into Superior Vena Cava, Percutaneous Approach (ICD-10-PCS; 2021-08-14)
PROC: 5A0935A Assistance with Respiratory Ventilation, Less than 24 Consecutive Hours, High Flow/Velocity Cannula (ICD-10-PCS; 2021-08-18)
PROC: 5A0945A Assistance with Respiratory Ventilation, 24-96 Consecutive Hours, High Flow/Velocity Cannula (ICD-10-PCS; 2021-08-19)
DX: A41.89 Other specified sepsis (principal); U07.1 COVID-19; J12.82 Pneumonia due to coronavirus disease 2019; E43 Unspecified severe protein-calorie malnutrition; J80 Acute respiratory distress syndrome; M62.82 Rhabdomyolysis; Z68.41 Body mass index [BMI] 40.0-44.9, adult; E87.1 Hypo-osmolality and hyponatremia; H54.61 Unqualified visual loss, right eye, normal vision left eye; E66.01 Morbid (severe) obesity due to excess calories; D64.9 Anemia, unspecified; E87.6 Hypokalemia; R65.20 Severe sepsis without septic shock; Z79.899 Other long term (current) drug therapy
CPT/HCPCS: 10078; 10203; 10879